=== PATIENT | female | born 1995 ===

== ENCOUNTER 2022-03-09 16:09 | Emergency (ER) | payer OTHER, SELFPAY ==
[2022-03-09 16:30] VITALS: BP 144/89; PULSE 106; RESP 16; TEMP 36.8; O2SAT 100
[2022-03-09 16:57] LABS: Appearance Urine Clear (Clear); Bilirubin Urine 1+ (Negative); Blood Urine Negative (Negative); Color Urine Yellow (Yellow); Glucose Urine UA Negative (Negative); Ketones Urine Trace mg/dL (Negative); Leukocyte Esterase Ur Negative LEU/UL (Negative); Nitrate Urine Negative (Negative); Protein Urine Negative (Negative); Specific Grav Ur 1.025 (1.001-1.035); Urobilinogen Urine 0.2 mg/dL (<2.0)
[2022-03-09 17:09] LABS: Mucus Urine Rare /lpf; RBC Urine 0-2 /hpf (0-2); Squamous Epithelial Cell Urine Few /hpf (Few); WBC Urine 0-3 /hpf
[2022-03-09 17:10] LABS: Add Urine Microscopic? YES
--- NOTE | 2022-03-09 18:44 | PC.NURSE ---
patient called at 1839, no answer second call no answer [id number] patient left waiting room without being seen
== END 2022-03-09 19:58 | disposition left against medical advice (07) ==
PROVIDERS: Emergency Provider Emergency Medicine
DX: N89.8 Other specified noninflammatory disorders of vagina (principal)
CPT/HCPCS: 36415; 81001; 84702; 99199

== ENCOUNTER 2022-04-01 16:06 | Emergency (ER) | payer OTHER, SELFPAY ==
[2022-04-01 17:46] VITALS: BP 144/83; PULSE 107; RESP 16; TEMP 36.9; O2SAT 99
[2022-04-01 19:00] VITALS: BP 132/72; PULSE 86; RESP 16; TEMP 37.1; O2SAT 85
--- NOTE | 2022-04-01 20:20 | PC.NURSE ---
first call 2011, no answer second call 2019, no answer.
== END 2022-04-01 20:20 | disposition left against medical advice (07) ==
DX: O20.9 Hemorrhage in early pregnancy, unspecified (principal)
CPT/HCPCS: 99199